=== PATIENT | male | born 1980 | race Caucasian/White ===

== ENCOUNTER 2017-05-22 16:29 | Emergency (ER) | payer OTHER ==
[~2017-05-22] VITALS: Ht 162.6 cm; Wt 61.0 kg
[2017-05-22] MEDS ORDERED: CEPHALEXIN500 MG PO (17:34)
[2017-05-22 17:51] VITALS: BP 124/75
== END 2017-05-22 17:59 | disposition home or self-care (01) | DRG 605 ==
LOC: ED 16:29
PROC: 0HQEXZZ Repair Left Lower Arm Skin, External Approach (ICD-10-PCS; principal; 2017-05-22)
DX: S51.812A Laceration without foreign body of left forearm, initial encounter (principal); W26.0XXA Contact with knife, initial encounter; Y93.89 Activity, other specified; Y92.009 Unspecified place in unspecified non-institutional (private) residence as the place of occurrence of the external cause

== ENCOUNTER 2017-06-02 17:28 | Emergency (ER) | payer OTHER ==
[~2017-06-02] VITALS: Ht 162.6 cm; Wt 60.0 kg
[~2017-06-02 17:28] MED LIST: CEPHALEXIN500 MG PO
[2017-06-02 17:36] VITALS: BP 145/86
== END 2017-06-02 17:41 | disposition home or self-care (01) | DRG 950 ==
LOC: ED 17:28
DX: S51.802D Unspecified open wound of left forearm, subsequent encounter (principal); F17.210 Nicotine dependence, cigarettes, uncomplicated; X58.XXXD Exposure to other specified factors, subsequent encounter

== ENCOUNTER 2017-08-19 23:54 | Emergency (ER) | payer OTHER ==
[~2017-08-19] VITALS: Ht 162.6 cm; Wt 60.4 kg
[2017-08-20] MEDS ORDERED: KEFLEX500 MG PO (00:46)
[2017-08-20 00:54] VITALS: BP 135/93
== END 2017-08-20 01:07 | disposition home or self-care (01) | DRG 605 ==
LOC: ED 23:54
PROC: 0HQFXZZ Repair Right Hand Skin, External Approach (ICD-10-PCS; principal; 2017-08-20)
DX: S61.214A Laceration without foreign body of right ring finger without damage to nail, initial encounter (principal); F17.210 Nicotine dependence, cigarettes, uncomplicated; W26.0XXA Contact with knife, initial encounter; Y93.G3 Activity, cooking and baking; Y92.000 Kitchen of unspecified non-institutional (private) residence as the place of occurrence of the external cause

== ENCOUNTER 2018-04-20 13:15 | Emergency (ER) | payer OTHER ==
[~2018-04-20] VITALS: Ht 162.6 cm; Wt 70.0 kg
[~2018-04-20 13:15] MED LIST changes: +KEFLEX500 MG PO
[2018-04-20 13:55] LABS: HEMATOCRIT 43.8 % (39.0-50.0); HEMOGLOBIN 15.2 g/dl (14.0-18.0); IMMATURE GRANULOCYTES 0.1 % (0.0-5.0); MEAN CELL VOLUME 93.6 fL CALC (80.0-100.0); MEAN CORPUSCULAR HGB 32.5 pG CALC (26.0-32.0); MEAN CORPUSCULAR HGB CONC 34.7 g/L CALC (32.0-36.0); NEUT# 5.16 thou/uL (1.82-7.42); RED BLOOD COUNT 4.68 mill/uL (4.70-6.10); RED CELL DISTRI WIDTH 12.4 % (11.5-15.5)
[2018-04-20 14:13] LABS: ALBUMIN 4.6 g/dL (3.2-5.0); ALKALINE PHOSPHATASE 42 u/l (38-126); ANION GAP 14 (6-22 (CALC)); BILIRUBIN, TOTAL 0.7 mg/dL (0.0-1.4); BUN 11 mg/dL (9-20); BUN/CREATININE RATIO 13 (12-20 (CALC)); CARBON DIOXIDE 29 mmol/l (22-30); CHLORIDE 100 mmol/l (95-108); CREATININE 0.9 mg/dL (0.7-1.3); GFR > 60 ML/MIN (>=60 (CALC)); GFR FOR AFR.AMER. > 60 ML/MIN (>=60 (CALC)); POTASSIUM 4.2 mmol/l (3.5-5.1); SGOT/AST 33 u/l (17-59); SODIUM 139 mmol/l (137-146); TOTAL PROTEIN 7.8 g/dL (6.3-8.2)
[2018-04-20] MEDS ORDERED: AMOXICILLIN500 MG PO (15:22)
[2018-04-20] MEDS ORDERED: VENTOLIN HFA IN (15:22)
[2018-04-20] MEDS ORDERED: ALBUTEROL SUL0.083 % IN (15:22)
[2018-04-20] MEDS ORDERED: PREDNISONE50 MG PO (15:22)
[2018-04-20 15:24] VITALS: BP 124/65
== END 2018-04-20 15:46 | disposition home or self-care (01) ==
LOC: ED 13:15
PROVIDERS: Emergency Medicine
DX: J20.9 Acute bronchitis, unspecified (principal); F17.200 Nicotine dependence, unspecified, uncomplicated; R07.9 Chest pain, unspecified; R06.02 Shortness of breath; R20.0 Anesthesia of skin

== ENCOUNTER 2019-03-21 09:35 | Emergency (ER) | payer MEDICAID ==
[~2019-03-21] VITALS: Ht 162.6 cm; Wt 70.0 kg
[~2019-03-21 09:35] MED LIST changes: +ALBUTEROL SUL0.083 % IN; +AMOXICILLIN500 MG PO; +PREDNISONE50 MG PO; +VENTOLIN HFA IN
[2019-03-21] MEDS ORDERED: TAM75CAP PO ×2 (10:07→10:25)
[2019-03-21 10:19] VITALS: BP 138/86
== END 2019-03-21 10:28 | disposition home or self-care (01) ==
LOC: ED 09:35
DX: J11.1 Influenza due to unidentified influenza virus with other respiratory manifestations (principal)

== ENCOUNTER 2019-05-18 | Emergency (ER) | payer MEDICAID ==
[~2019-05-18] MED LIST changes: +TAM75CAP PO
== END 2019-05-18 20:56 | disposition home or self-care (01) ==
DX: S80.11XA Contusion of right lower leg, initial encounter (principal); F17.200 Nicotine dependence, unspecified, uncomplicated; W22.09XA Striking against other stationary object, initial encounter

== ENCOUNTER 2019-08-31 | Emergency (ER) | payer MEDICAID ==
[2019-08-31] MEDS ORDERED: MOTRIN400 MG PO ×2 (13:58)
== END 2019-08-31 13:59 | disposition home or self-care (01) ==
DX: M25.512 Pain in left shoulder (principal); R07.81 Pleurodynia; F17.210 Nicotine dependence, cigarettes, uncomplicated

== ENCOUNTER 2019-11-21 23:03 | Emergency (ER) | payer MEDICAID ==
[~2019-11-21] VITALS: Ht 162.6 cm; Wt 59.1 kg
[~2019-11-21 23:03] MED LIST changes: +MOTRIN400 MG PO
[2019-11-21] MEDS ORDERED: NAPROXEN500 MG PO (23:34)
[2019-11-21 23:55] VITALS: BP 137/81
== END 2019-11-21 23:55 | disposition home or self-care (01) ==
LOC: ED 23:03
DX: S96.912A Strain of unspecified muscle and tendon at ankle and foot level, left foot, initial encounter (principal); F17.210 Nicotine dependence, cigarettes, uncomplicated; W11.XXXA Fall on and from ladder, initial encounter; Y92.009 Unspecified place in unspecified non-institutional (private) residence as the place of occurrence of the external cause

== ENCOUNTER 2020-02-23 12:06 | Emergency (ER) | payer MEDICAID ==
[~2020-02-23] VITALS: Ht 162.6 cm; Wt 56.8 kg
[~2020-02-23 12:06] MED LIST changes: +NAPROXEN500 MG PO
[2020-02-23 12:49] LABS: HEMATOCRIT 45.5 % (39.0-50.0); HEMOGLOBIN 15.5 g/dl (14.0-18.0); IMMATURE GRANULOCYTES 0.2 % (0.0-5.0); MEAN CELL VOLUME 91.9 fL CALC (80.0-100.0); MEAN CORPUSCULAR HGB 31.3 pG CALC (26.0-32.0); MEAN CORPUSCULAR HGB CONC 34.1 g/dL CAL (32.0-36.0); NEUT# 4.29 thou/uL (1.82-7.42); RED BLOOD COUNT 4.95 mill/uL (4.70-6.10); RED CELL DISTRI WIDTH 12.5 % (11.5-15.5)
[2020-02-23 13:02] LABS: ALBUMIN 4.8 g/dL (3.2-5.0); ALKALINE PHOSPHATASE 51 u/l (38-126); ANION GAP 15 (6-22 (CALC)); BUN 5 mg/dL (9-20); BUN/CREATININE RATIO 6 (12-20 (CALC)); CARBON DIOXIDE 26 mmol/l (22-30); CHLORIDE 99 mmol/l (95-108); CREATININE 0.8 mg/dL (0.7-1.3); GFR > 60 ML/MIN (>=60 (CALC)); GFR FOR AFR.AMER. > 60 ML/MIN (>=60 (CALC)); POTASSIUM 4.4 mmol/l (3.5-5.1); SGOT/AST 37 u/l (17-59); SODIUM 136 mmol/l (137-146); TOTAL PROTEIN 8.3 g/dL (6.3-8.2)
[2020-02-23 13:12] LABS: BILIRUBIN, TOTAL 0.4 mg/dL (0.0-1.4)
[2020-02-23 13:56] VITALS: BP 137/97
== END 2020-02-23 14:04 | disposition home or self-care (01) ==
LOC: ED 12:06
PROVIDERS: Family Medicine
DX: R07.9 Chest pain, unspecified (principal); K21.9 Gastro-esophageal reflux disease without esophagitis; F17.200 Nicotine dependence, unspecified, uncomplicated